=== PATIENT | female | born 1975 | race Caucasian/White ===

== ENCOUNTER 2016-08-14 23:27 | Emergency (ER) | payer BC, OTHER ==
--- NOTE | 2016-08-15 00:16 | ED.PDOC ---
History of Present Illness - General Chief Complaint: Fever Stated Complaint: fever, chills, bodyache, N/V, sinuses, sore throat Time Seen by Provider: 08/15/16 00:13 Source: patient Exam Limitations: no limitations - History of Present Illness Initial Comments: Ms. Cara Tyler 41 y/o female stated that her condition started yesterday with cough productive and nasal drainage and today got worse had developed fever and bilateral earache. Timing/Duration: getting worse, other - 48 hours ago Severity: moderate Improving Factors: nothing Worsening Factors: nothing Associated Symptoms: cough Allergies/Adverse Reactions: Allergies Amoxicillin [From Augmentin] Allergy (Verified 08/14/16 23:43) Clavulanic Acid [From Augmentin] Allergy (Verified 08/14/16 23:43) Influenza Vaccines Allergy (Verified 08/14/16 23:43) Wasp Venom Protein Allergy (Verified 08/14/16 23:43) Home Medications: Ambulatory Orders Acetaminophen W/ Codeine [Tylenol W/ CODEINE #3] 2 ea PO TID 08/14/16 Amitriptyline HCl 50 mg PO BEDTIME 08/14/16 Carbidopa-Levodopa [Carbidopa/Levodopa 25-100 mg] 1 tab PO BEDTIME 08/14/16 Gabapentin [Neurontin] 300 mg PO TID 08/14/16 Azithromycin [Zithromax Z-Yasmani] 1 ea PO DAILY #1 pack 08/15/16 Chlorpheniramine & Pseudoeph [Sudogest Sinus & Allergy 4-60 mg] 1 tab PO BID # 20 tab 08/15/16 Pseudoephedrine-Guaifenesin [Mucinex D] 1 tab PO BID PRN #30 tab 08/15/16 Review of Systems - Review of Systems Constitutional: States: fever EENTM: States: see HPI, nose pain, nose congestion Respiratory: States: see HPI Cardiology: States: no symptoms reported Gastrointestinal/Abdominal: States: no symptoms reported Genitourinary: States: no symptoms reported Musculoskeletal: States: joint pain - chronic Skin: States: no symptoms reported Neurological: States: no symptoms reported Endocrine: States: no symptoms reported Hematologic/Lymphatic: States: no symptoms reported Past Medical History (General) - Patient Medical History Hx Seizures: No Hx Stroke: No Hx Dementia: No Hx Asthma: No Hx of COPD: No Hx Cardiac Disorders: No Hx Congestive Heart Failure: No Hx Pacemaker: No Hx Hypertension: No Hx Thyroid Disease: No Hx Diabetes: No Hx Gastroesophageal Reflux: No Hx Renal Disease: No Hx Cancer: No Hx of HIV: No Hx Hepatitis C: No Hx MRSA: No Surgical History: cholecystectomy, other - left hip surgery - Vaccination History Hx Tetanus, Diphtheria Vaccination: Yes Hx Influenza Vaccination: No Hx Pneumococcal Vaccination: No Immunizations Up to Date: Yes - Social History Hx Tobacco Use: No Hx Chewing Tobacco Use: No Hx Alcohol Use: No Hx Substance Use: No Hx Substance Use Treatment: No Hx Depression: No Feels Threatened In Home Enviroment: No Feels Threatened In a Relationship: No Hx Physical Abuse: No Hx Emotional Abuse: No Hx Suspected Abuse: No - Activities of Daily Living Patient Lives Alone: No - family Grooming Ability: Independent Eating (Feeding) Ability: Independent Toileting Ability: Independent - Female History Patient is a Female of Child Bearing Age (10 -59 yrs old): Yes Hx Last Menstrual Period: 07/20/16 Patient : No Family Medical History - Family History Father Living Status: Cause of : cancer Hx Family Diabetes: Yes - mom Hx Family Cancer: Yes - lung,melanoma-dad Hx Family;Other: Rheumatoid arthritis-mom,brain aneurysm-grandparents Physical Exam - Physical Exam General Appearance: Alert, Anxious, Comfortable, No apparent distress Eye Exam: bilateral normal Ears, Nose, Throat: hearing grossly normal, normal pharynx, nasal congestion Neck: non-tender, full range of motion, supple Respiratory: chest non-tender, lungs clear, normal breath sounds, no respiratory distress Cardiovascular/Chest: normal peripheral pulses, regular rate, rhythm, no edema, no gallop, no JVD, no murmur Peripheral Pulses: radial,right: 2+, radial,left: 2+ Gastrointestinal/Abdominal: normal bowel sounds, non tender, soft, no organomegaly Back Exam: normal inspection, no CVA tenderness, no vertebral tenderness Extremity: normal range of motion, non-tender, normal inspection, no pedal edema , no calf tenderness Neurologic: alert, normal mood/affect, oriented x 3 Skin Exam: normal color, warm/dry Lymphatic: no adenopathy Progress - Results/Orders Results/Orders: Laboratory Results WBC 8.6 K/mm3 (4.8-10.8) 08/14/16 23:57 RBC 4.83 M/mm3 (4.20-5.40) 08/14/16 23:57 Hgb 13.8 gm/dL (12.0-16.0) 08/14/16 23:57 Hct 41.4 % (36.0-47.0) 08/14/16 23:57 MCV 85.8 fl (81.0-99.0) 08/14/16 23:57 MCH 28.5 pg (27.0-31.0) 08/14/16 23:57 MCHC 33.2 g/dL (33.0-37.0) 08/14/16 23:57 RDW 14.2 % (11.5-14.5) 08/14/16 23:57 Plt Count 219 K/mm3 (130-400) 08/14/16 23:57 MPV 8.1 fl (7.40-10.4) 08/14/16 23:57 Absolute Neuts (auto) 6.00 K/uL (1.8-6.8) 08/14/16 23:57 Absolute Lymphs (auto) 1.70 K/uL (1.0-3.4) 08/14/16 23:57 Absolute Monos (auto) 0.70 K/uL (0.2-0.8) 08/14/16 23:57 Absolute Eos (auto) 0.10 K/uL (0.0-0.4) 08/14/16 23:57 Absolute Basos (auto) 0.00 K/uL (0.0-0.1) 08/14/16 23:57 Neutrophils % 69.4 % (42.0-78.0) 08/14/16 23:57 Lymphocytes % 20.1 % (20.0-50.0) 08/14/16 23:57 Monocytes % 8.5 % (2.0-9.0) 08/14/16 23:57 Eosinophils % 1.6 % (1.0-5.0) 08/14/16 23:57 Basophils % 0.4 % (0.0-2.0) 08/14/16 23:57 Group A Strep DNA Negative (NEGATIVE) 08/14/16 23:55 Vital Signs - 24 hr 08/14/16 23:35 Temperature 101.0 F H Pulse Rate [ 95 H monitor] Respiratory 20 Rate Blood Pressure 159/100 [Left Arm] O2 Sat by Pulse 94 L Oximetry Departure - Departure Clinical Impression: Upper respiratory infection, acute Time of Disposition: 00:27 Disposition: Discharge to Home or Self Care Condition: Good Departure Forms: ED Discharge - Pt. Copy, Patient Portal Self Enrollment Instructions: DI for Viral Upper Respiratory Infection -- Adult Referrals: Dakota Davis III, MD [Primary Care Provider] - 1-2 Weeks Prescriptions: Pseudoephedrine-Guaifenesin [Mucinex D] 1 tab PO BID PRN #30 tab PRN Reason: Cough Chlorpheniramine & Pseudoeph [Sudogest Sinus & Allergy 4-60 mg] 1 tab PO BID # 20 tab Azithromycin [Zithromax Z-Yasmani] 1 ea PO DAILY #1 pack Home Medications: Ambulatory Orders Acetaminophen W/ Codeine [Tylenol W/ CODEINE #3] 2 ea PO TID 08/14/16 Amitriptyline HCl 50 mg PO BEDTIME 08/14/16 Carbidopa-Levodopa [Carbidopa/Levodopa 25-100 mg] 1 tab PO BEDTIME 08/14/16 Gabapentin [Neurontin] 300 mg PO TID 08/14/16 Azithromycin [Zithromax Z-Yasmani] 1 ea PO DAILY #1 pack 08/15/16 Chlorpheniramine & Pseudoeph [Sudogest Sinus & Allergy 4-60 mg] 1 tab PO BID # 20 tab 08/15/16 Pseudoephedrine-Guaifenesin [Mucinex D] 1 tab PO BID PRN #30 tab 08/15/16 Additional Instructions: Tylenol 500 mg po every 6 hours for pain fever;Follow up with primary md 2016 call for appointment as needed.
[2016-08-15] MEDS ORDERED: BENZONATATE PERLES 100 MG CAP PO ONE (00:23)
[2016-08-15] MEDS ORDERED: diphenhydrAMINE HCL 25 MG CAP PO ONE (00:23)
[2016-08-15] MEDS ORDERED: AZITHROMYCIN 250 MG TAB PO ONE (00:24)
--- NOTE | 2016-08-15 00:24 | RAD ---
EXAM: Chest,1 View CLINICAL INDICATION: 41-year-old female with fever, chills, bodyaches, nausea and vomiting, sinus problems and cough. TECHNIQUE: Single view, AP portable chest was obtained. COMPARISON: None. FINDINGS: Unremarkable cardiac and mediastinal silhouette. Heart size is normal. Low lung volumes grossly clear without focal opacity, pneumothorax or pleural effusions. Appearance of the bilateral lung bases suspected secondary to low lung volumes and overlying soft tissue density. Upright PA and lateral radiography may be considered when the patient is clinically able. The visualized bones are within normal limits. IMPRESSION: Appearance of the bilateral lung bases suspected secondary to low lung volumes and overlying soft tissue density. Upright PA and lateral radiography may be considered when the patient is clinically able. Electronically signed by: Afia Markham MD 08/15/2016 12:24 AM CDT
[2016-08-15 01:01] VITALS: BP 136/87; TEMP 99.9; O2SAT 95
== END 2016-08-15 00:55 | disposition home or self-care (01) ==
LOC: ER 23:27
DX: J06.9 Acute upper respiratory infection, unspecified (principal); Z79.899 Other long term (current) drug therapy; Z88.3 Allergy status to other anti-infective agents; Z91.030 Bee allergy status
CPT/HCPCS: 36415; 71010; 85025; 87070; 87651; Q0144; Q0163